=== PATIENT | female | born 1960 | race Caucasian/White ===

== ENCOUNTER 2020-01-08 09:08 | Emergency (ER) | payer OTHER ==
[~2020-01-08] VITALS: Ht 165.1 cm; Wt 126.8 kg
[2020-01-08] MEDS ORDERED: ACETAMINOPHEN 500 MG TABLET PO ONE (09:30)
[2020-01-08] MEDS ORDERED: KETOROLAC 30 MG/1 ML IM ONE (09:30)
--- NOTE | 2020-01-08 09:30 | NUR ---
PT TO IMAGING AT THIS TIME.
[2020-01-08] MEDS ORDERED: KETOROLAC 30 MG/1 ML ONE (09:32)
[2020-01-08] MEDS ORDERED: ACETAMINOPHEN 500 MG TABLET ONE (09:32)
[2020-01-08 09:58] VITALS: BP 158/85
--- NOTE | 2020-01-08 10:00 | NUR ---
PT BACK TO RM. PT MEDICATED PER OCT. US AT BEDSIDE AT THIS TIME PT STATES SHE HAS HAD PAIN BLE FOR 1 YR, THE PAIN GOES FROM THE BOTTOM OF HER BUTTOCK AREA TO HER CALVES. PAIN IS WORSE ON RLE. PT STATES OVER THE LAST FOUR DAYS PAIN HAS INCREASED AND SHE IS HAVING TROUBLE WALKING
== END 2020-01-08 12:10 | disposition home or self-care (01) ==
LOC: ED 09:53
DX: M70.71 Other bursitis of hip, right hip (principal); M25.552 Pain in left hip; M79.604 Pain in right leg; R60.0 Localized edema; E11.9 Type 2 diabetes mellitus without complications
CPT/HCPCS: 73502; 73552; 93971; 96372; 99284; J1885